=== PATIENT | female | born 1985 | race Caucasian/White ===

== ENCOUNTER 2019-05-27 21:30 | Emergency (ER) | payer OTHER ==
[~2019-05-27] VITALS: Ht 157.5 cm; Wt 67.1 kg
[2019-05-27 21:35] VITALS: BP 101/67
== END 2019-05-28 01:39 | disposition left against medical advice (07) ==
LOC: ED 21:30
DX: Z53.21 Procedure and treatment not carried out due to patient leaving prior to being seen by health care provider (principal)

== ENCOUNTER 2020-01-12 23:27 | Emergency (ER) | payer OTHER ==
[~2020-01-12] VITALS: Ht 157.5 cm; Wt 63.7 kg
[2020-01-12 23:33] VITALS: Ht 157.5 cm; Wt 63.7 kg
[2020-01-13 02:59] VITALS: BP 104/79
== END 2020-01-13 02:59 | disposition home or self-care (01) ==
LOC: ED 23:27
DX: R10.2 Pelvic and perineal pain (principal); N76.0 Acute vaginitis
CPT/HCPCS: 87491; 87591

== ENCOUNTER 2020-02-26 13:53 | Emergency (ER) | payer OTHER | END 2020-02-26 15:31 | disposition left against medical advice (07) | LOC: ED 13:53 | DX: Z53.21 Procedure and treatment not carried out due to patient leaving prior to being seen by health care provider (principal) ==

== ENCOUNTER 2020-04-26 19:24 | Emergency (ER) | payer OTHER ==
[~2020-04-26] VITALS: Ht 157.5 cm; Wt 69.4 kg
[2020-04-26 19:30] VITALS: Ht 157.5 cm; Wt 69.4 kg
[2020-04-26 20:06] LABS: BASOPHIL % 0.4 % (0-2); PLATELET COUNT 203 x10^3mcL (130-400); RED CELL DISTRIBUTION WIDTH 18.7 % (11.5-14.5)
[2020-04-26 20:42] LABS: microscopic required? NO
[2020-04-26 20:52] LABS: UA SPECIFIC GRAVITY 1.025 (1.005-1.035); urine erythrocyte NEGATIVE (NEGATIVE)
[2020-04-26 21:04] VITALS: BP 106/66
== END 2020-04-26 21:04 | disposition home or self-care (01) ==
LOC: ED 19:24
PROVIDERS: Emergency Medicine
DX: O20.0 Threatened abortion (principal); Z98.890 Other specified postprocedural states
CPT/HCPCS: Q0092